=== PATIENT | female | born 1960 ===

== ENCOUNTER 2021-09-05 10:27 | Outpatient (REF) | payer OTHER, SELFPAY ==
[2021-09-05 10:30] LABS: MANUAL DIFF FLAG NO
[2021-09-05 10:34] LABS: Basophils Percent Auto 0.3 % (0-2); Eosinophils Absolute Auto 0.1 X10*3/uL (0.0-0.4); Hematocrit 39.7 % (37-47); Hemoglobin 13.1 g/dl (12.0-16.0); Imm Gran Abs Auto 0.01 X10*3/uL (0.00-0.03); Imm Gran Pct Auto 0.3 % (0.0-0.4); Lymphocytes Absolute Auto 1.7 X10*3/uL (1.2-4.9); Lymphocytes Percent Auto 42.1 % (20-40); Mean Corpuscular Hemoglobin 30.3 pg (27.0-33.0); Mean Corpuscular Volume 91.9 fL (80-98); Mean Platelet Volume 9.9 fL (9.4-12.3); Monocytes Absolute Auto 0.5 X10*3/uL (0.1-1.2); Monocytes Percent Auto 11.6 % (2-11); Neutrophils Absolute Auto 1.7 X10*3/uL (2.0-8.3); Neutrophils Percent Auto 43.7 % (45-73); Platelet Count 181 X10*3/uL (160-400); Red Blood Count 4.32 X10*6/uL (4.20-5.50); Red Cell Distribution Width 11.9 % (11.0-16.0)
[2021-09-05 10:47] LABS: Alanine Aminotransferase 27 U/L (0-31); Albumin Level 4.5 g/dL (3.5-5.0); Alkaline Phosphatase 47 U/L (39-117); Anion Gap 10 (12-20); Aspartate Amino Transferase 30 U/L (5-31); Bilirubin Total 1.1 mg/dL (0.0-1.0); Blood Urea Nitrogen 19 mg/dL (9-16); Calcium 9.9 mg/dL (8.4-10.2); Carbon Dioxide 31 mmol/L (22-29); Chloride 104 mmol/L (96-108); Cholesterol 196 mg/dL; Estimated Glomerular Filt Rate 57; Glucose Fasting 94 mg/dL (60-99); HDL Cholesterol 72 mg/dL; LDL Cholesterol Calculated 110 mg/dl; Potassium 4.5 mmol/L (3.3-5.1); Sodium 140 mmol/L (135-145); Total Protein 6.9 g/dL (6.5-8.0); Triglycerides 73 mg/dL
[2021-09-05 11:13] LABS: Appearance Urine CLEAR; Color Urine YELLOW; Glucose Urine UA NEG (NEG); Leukocyte Esterase Urine NEG (NEG); Nitrite Urine NEG (NEG); Urine Blood NEG (NEG); Urine Ketones NEG (NEG); Urine Protein NEG (NEG-TRACE)
== END 2021-09-05 10:28 | disposition home or self-care (01) ==
LOC: HO.LNP 10:27
PROVIDERS: Visit Provider Internal Medicine
DX: Z00.00 Encounter for general adult medical examination without abnormal findings (principal)
CPT/HCPCS: 80053; 80061; 81003; 85025

== ENCOUNTER 2022-03-15 11:01 | Outpatient (REF) | payer OTHER, SELFPAY ==
[2022-03-15 11:09] LABS: MANUAL DIFF FLAG NO
[2022-03-15 11:31] LABS: Basophils Percent Auto 0.5 % (0-2); Eosinophils Absolute Auto 0.1 X10*3/uL (0.0-0.4); Eosinophils Percent Auto 1.4 % (0-4); Hematocrit 38.9 % (37.0-47.0); Hemoglobin 12.6 g/dl (12.0-16.0); Imm Gran Abs Auto 0.01 X10*3/uL (0.00-0.03); Imm Gran Pct Auto 0.3 % (0.0-0.4); Lymphocytes Absolute Auto 1.3 X10*3/uL (1.2-4.9); Lymphocytes Percent Auto 35.9 % (20-40); Mean Corpuscular HGB Conc 32.4 g/dl (31.0-35.0); Mean Corpuscular Hemoglobin 30.7 pg (27.0-33.0); Mean Corpuscular Volume 94.6 fL (80.0-98.0); Monocytes Absolute Auto 0.4 X10*3/uL (0.1-1.2); Monocytes Percent Auto 10.3 % (2-11); Neutrophils Absolute Auto 1.9 x10*3/uL (2.0-8.3); Neutrophils Percent Auto 51.6 % (45-73); Platelet Count 188 X10*3/uL (160-400); Red Blood Count 4.11 X10*6/uL (4.20-5.50); Red Cell Distribution Width 11.6 % (11.0-16.0); White Blood Count 3.7 X10*3/uL (4.8-10.8)
== END 2022-03-15 11:02 | disposition home or self-care (01) ==
LOC: HO.LNP 11:01
PROVIDERS: PCP Internal Medicine; Visit Provider Internal Medicine
DX: D72.820 Lymphocytosis (symptomatic) (principal)
CPT/HCPCS: 85025

== ENCOUNTER 2022-07-12 10:35 | Outpatient (REF) | payer OTHER, SELFPAY ==
[2022-07-12 10:40] LABS: MANUAL DIFF FLAG NO
[2022-07-12 10:50] LABS: Basophils Percent Auto 0.5 % (0-2); Eosinophils Absolute Auto 0.1 X10*3/uL (0.0-0.4); Eosinophils Percent Auto 2.3 % (0-4); Hematocrit 38.1 % (37.0-47.0); Hemoglobin 12.8 g/dl (12.0-16.0); Imm Gran Abs Auto 0.01 X10*3/uL (0.00-0.03); Imm Gran Pct Auto 0.3 % (0.0-0.4); Lymphocytes Absolute Auto 1.5 X10*3/uL (1.2-4.9); Lymphocytes Percent Auto 38.1 % (20-40); Mean Corpuscular HGB Conc 33.6 g/dl (31.0-35.0); Mean Corpuscular Hemoglobin 30.3 pg (27.0-33.0); Mean Corpuscular Volume 90.1 fL (80.0-98.0); Mean Platelet Volume 9.9 fL (9.4-12.3); Monocytes Absolute Auto 0.5 X10*3/uL (0.1-1.2); Monocytes Percent Auto 11.6 % (2-11); Neutrophils Absolute Auto 1.9 x10*3/uL (2.0-8.3); Neutrophils Percent Auto 47.2 % (45-73); Platelet Count 175 X10*3/uL (160-400); Red Blood Count 4.23 X10*6/uL (4.20-5.50); Red Cell Distribution Width 11.6 % (11.0-16.0)
[2022-07-12 11:00] LABS: Alanine Aminotransferase 20 U/L (0-31); Albumin Level 4.4 g/dL (3.5-5.0); Alkaline Phosphatase 39 U/L (39-117); Anion Gap 12 (12-20); Aspartate Amino Transferase 27 U/L (5-31); Bilirubin Total 0.9 mg/dL (0.0-1.0); Blood Urea Nitrogen 15 mg/dL (9-16); Calcium 9.3 mg/dL (8.4-10.2); Carbon Dioxide 28 mmol/L (22-29); Chloride 105 mmol/L (96-108); Cholesterol 205 mg/dL; Estimated Glomerular Filt Rate 53; Glucose Fasting 84 mg/dL (60-99); HDL Cholesterol 75 mg/dL; LDL Cholesterol Calculated 118 mg/dl; Potassium 4.4 mmol/L (3.3-5.1); Sodium 141 mmol/L (135-145); Total Protein 6.5 g/dL (6.5-8.0); Triglycerides 64 mg/dL
[2022-07-12 11:46] LABS: Appearance Urine Clear; Color Urine Yellow; Glucose Urine UA Negative (Negative); Leukocyte Esterase Urine Negative (Negative); Nitrite Urine Negative (Negative); PH 5.5 (5.0-9.0); Specific Gravity - Urine <= 1.005 (1.005-1.025); Urine Blood Negative (Negative); Urine Ketones Negative (Negative); Urine Protein Negative (Neg-Trace)
[2022-07-12 11:52] LABS: Bacteria Urine None Seen (None Seen); Hyaline Casts Urine 0-2 /LPF (0-2); RBC Urine 0-2 /HPF (0-2); Squamous Epithelial Cell Urine 0-2 /HPF (0-2); WBC Urine 0-5 /HPF (0-5)
== END 2022-07-12 10:36 | disposition home or self-care (01) ==
LOC: HO.LNP 10:35
PROVIDERS: Visit Provider Internal Medicine
DX: Z00.00 Encounter for general adult medical examination without abnormal findings (principal); D72.820 Lymphocytosis (symptomatic)
CPT/HCPCS: 80053; 80061; 81001; 85025

== ENCOUNTER 2023-07-22 10:49 | Outpatient (REF) | payer OTHER, SELFPAY ==
[2023-07-22 10:52] LABS: MANUAL DIFF FLAG NO
[2023-07-22 11:14] LABS: Basophils Percent Auto 0.5 % (0-2); Eosinophils Absolute Auto 0.1 X10*3/uL (0.0-0.4); Eosinophils Percent Auto 3.3 % (0-4); Hematocrit 37.9 % (37.0-47.0); Hemoglobin 12.6 g/dl (12.0-16.0); Imm Gran Abs Auto 0.01 X10*3/uL (0.00-0.03); Imm Gran Pct Auto 0.3 % (0.0-0.4); Lymphocytes Absolute Auto 1.3 X10*3/uL (1.2-4.9); Lymphocytes Percent Auto 35.8 % (20-40); Mean Corpuscular HGB Conc 33.2 g/dl (31.0-35.0); Mean Corpuscular Hemoglobin 30.7 pg (27.0-33.0); Mean Corpuscular Volume 92.2 fL (80.0-98.0); Mean Platelet Volume 10.1 fL (9.4-12.3); Monocytes Absolute Auto 0.4 X10*3/uL (0.1-1.2); Monocytes Percent Auto 9.6 % (2-11); Neutrophils Absolute Auto 1.9 x10*3/uL (2.0-8.3); Neutrophils Percent Auto 50.5 % (45-73); Platelet Count 183 X10*3/uL (160-400); Red Blood Count 4.11 X10*6/uL (4.20-5.50); Red Cell Distribution Width 11.6 % (11.0-16.0); White Blood Count 3.7 X10*3/uL (4.8-10.8)
[2023-07-22 11:27] LABS: Appearance Urine Clear; Color Urine Dark Yellow; Glucose Urine UA Negative (Negative); Leukocyte Esterase Urine Trace (Negative); Nitrite Urine Negative (Negative); PH 5.5 (5.0-9.0); Specific Gravity - Urine >= 1.030 (1.005-1.025); UMIC TRIGGER UACC YES; Urine Blood Negative (Negative); Urine Ketones Trace mg/dL (Negative); Urine Protein Negative (Neg-Trace)
[2023-07-22 11:31] LABS: Alanine Aminotransferase 19 U/L (0-31); Albumin Level 4.2 g/dL (3.5-5.0); Alkaline Phosphatase 47 U/L (39-117); Anion Gap 10 (12-20); Aspartate Amino Transferase 24 U/L (5-31); Bilirubin Total 0.9 mg/dL (0.0-1.0); Blood Urea Nitrogen 20 mg/dL (9-16); Calcium 9.4 mg/dL (8.4-10.2); Carbon Dioxide 29 mmol/L (22-29); Chloride 105 mmol/L (96-108); Cholesterol 195 mg/dL (<200); Estimated Glomerular Filt Rate > 60; Glucose Fasting 87 mg/dL (60-99); HDL Cholesterol 71 mg/dL (>40); LDL Cholesterol Calculated 109 mg/dL (<100); Potassium 3.8 mmol/L (3.3-5.1); Sodium 140 mmol/L (135-145); Total Protein 6.6 g/dL (6.5-8.0); Triglycerides 79 mg/dL (<150)
[2023-07-22 11:34] LABS: Bacteria Urine 1+ (None Seen); Hyaline Casts Urine 0-2 /LPF (0-2); WBC Urine 0-5 /HPF (0-5)
== END 2023-07-22 10:50 | disposition home or self-care (01) ==
LOC: HO.LNP 10:49
PROVIDERS: PCP Internal Medicine; Visit Provider Internal Medicine
DX: Z00.00 Encounter for general adult medical examination without abnormal findings (principal); D72.820 Lymphocytosis (symptomatic)
CPT/HCPCS: 80053; 80061; 81001; 85025

== ENCOUNTER 2023-08-26 11:26 | Outpatient (REF) | payer OTHER, SELFPAY ==
[2023-08-26 11:44] LABS: Appearance Urine Clear; Color Urine Yellow; Glucose Urine UA Negative (Negative); Leukocyte Esterase Urine Negative (Negative); Nitrite Urine Negative (Negative); PH 5.5 (5.0-9.0); Specific Gravity - Urine 1.025 (1.005-1.025); Urine Blood Negative (Negative); Urine Ketones Trace mg/dL (Negative); Urine Protein Negative (Neg-Trace)
[2023-08-26 12:00] LABS: Bacteria Urine Trace (None Seen); Calcium Oxalate Crystals Urine Present; Hyaline Casts Urine 0-2 /LPF (0-2); RBC Urine 0-2 /HPF (0-2); WBC Urine 0-5 /HPF (0-5)
== END 2023-08-26 11:27 | disposition home or self-care (01) ==
LOC: HO.LNP 11:26
PROVIDERS: Visit Provider Internal Medicine
DX: R31.9 Hematuria, unspecified (principal)
CPT/HCPCS: 81001

== ENCOUNTER 2024-07-23 11:41 | Outpatient (REF) | payer OTHER, SELFPAY ==
[2024-07-23 11:45] LABS: MANUAL DIFF FLAG NO
[2024-07-23 12:11] LABS: Eosinophils Absolute Auto 0.1 X10*3/uL (0.0-0.4); Eosinophils Percent Auto 1.8 % (0-4); Hematocrit 39.8 % (37.0-47.0); Hemoglobin 13.1 g/dl (12.0-16.0); Imm Gran Abs Auto 0.01 X10*3/uL (0.00-0.03); Imm Gran Pct Auto 0.3 % (0.0-0.4); Lymphocytes Absolute Auto 1.4 X10*3/uL (1.2-4.9); Lymphocytes Percent Auto 36.5 % (20-40); Mean Corpuscular HGB Conc 32.9 g/dl (31.0-35.0); Mean Corpuscular Hemoglobin 30.5 pg (27.0-33.0); Mean Corpuscular Volume 92.6 fL (80.0-98.0); Mean Platelet Volume 9.8 fL (9.4-12.3); Monocytes Absolute Auto 0.4 X10*3/uL (0.1-1.2); Monocytes Percent Auto 10.4 % (2-11); Neutrophils Absolute Auto 1.9 x10*3/uL (2.0-8.3); Platelet Count 185 X10*3/uL (160-400); Red Cell Distribution Width 11.8 % (11.0-16.0); White Blood Count 3.9 X10*3/uL (4.8-10.8)
[2024-07-23 12:12] LABS: Appearance Urine Clear; Color Urine Yellow; Glucose Urine UA Negative (Negative); Leukocyte Esterase Urine Negative (Negative); Nitrite Urine Negative (Negative); PH 5.5 (5.0-9.0); Specific Gravity - Urine <= 1.005 (1.005-1.025); Urine Blood Negative (Negative); Urine Ketones Negative (Negative); Urine Protein Negative (Neg-Trace)
[2024-07-23 12:18] LABS: Bacteria Urine None Seen (None Seen); Hyaline Casts Urine 0-2 /LPF (0-2); RBC Urine 0-2 /HPF (0-2); Squamous Epithelial Cell Urine 0-2 /HPF (0-2); WBC Urine 0-5 /HPF (0-5)
[2024-07-23 12:30] LABS: Alanine Aminotransferase 21 U/L (0-31); Albumin Level 4.3 g/dL (3.5-5.0); Alkaline Phosphatase 40 U/L (39-117); Anion Gap 12 (12-20); Aspartate Amino Transferase 26 U/L (5-31); Blood Urea Nitrogen 17 mg/dL (9-16); Calcium 9.7 mg/dL (8.4-10.2); Carbon Dioxide 28 mmol/L (22-29); Chloride 106 mmol/L (96-108); Cholesterol 196 mg/dL (<200); Estimated Glomerular Filt Rate > 60; Glucose Fasting 90 mg/dL (60-99); HDL Cholesterol 72 mg/dL (>40); LDL Cholesterol Calculated 108 mg/dL (<100); Potassium 4.1 mmol/L (3.3-5.1); Sodium 142 mmol/L (135-145); Total Protein 6.8 g/dL (6.5-8.0); Triglycerides 83 mg/dL (<150)
== END 2024-07-23 11:42 | disposition home or self-care (01) ==
LOC: HO.LNP 11:41
PROVIDERS: Visit Provider Internal Medicine
DX: Z00.00 Encounter for general adult medical examination without abnormal findings (principal); D72.820 Lymphocytosis (symptomatic)
CPT/HCPCS: 80053; 80061; 81001; 85025

== ENCOUNTER 2025-07-27 10:57 | Outpatient (REF) | payer OTHER, SELFPAY ==
--- OUTSIDE RECORDS SUMMARY | 2024-07-23 03:00 | XMS_ITS ---
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 Name Role Phone Berlin Ospina Primary Care Provider [phone] Results Component Value Reference Range Notes Complete Blood Count Auto Di ff Reviewed date:07/24/2024 08:41:55 AM Interpretation: Performing Lab:[facility], [address] [place] [id number] Notes/Report: White Blood Count 3.9 4.8-10.8 X10*3/uL Red Blood Count 4.30 4.20-5.50 X10*6/uL Hemoglobin 13.1 12.0-16.0 g/dl Hematocrit 39.8 37.0-47.0 % Mean Corpuscular Volume 92.6 80.0-98.0 fL Mean Corpuscular Hemoglobin 30.5 27.0-33.0 pg Mean Corpuscular HGB Conc 32.9 31.0-35.0 g/dl Red Cell Distribution Width 11.8 11.0-16.0 % Platelet Count 185 160-400 X10*3/uL Mean Platelet Volume 9.8 9.4-12.3 fL Neutrophils Percent Auto 50.0 45-73 % Imm Gran Pct Auto 0.3 0.0-0.4 % Lymphocytes Percent Auto 36.5 20-40 % Monocytes Percent Auto 10.4 2-11 % Eosinophils Percent Auto 1.8 0-4 % Basophils Percent Auto 1.0 0-2 % NRBC Pct Auto 0.0 0.0-0.2 /100WBC Neutrophils Absolute Auto 1.9 2.0-8.3 x10*3/u L Imm Gran Abs Auto 0.01 0.00-0.03 X10*3/uL Lymphocytes Absolute Auto 1.4 1.2-4.9 X10*3/u L Monocytes Absolute Auto 0.4 0.1-1.2 X10*3/uL Eosinophils Absolute Auto 0.1 0.0-0.4 X10*3/u L Basophils Absolute Auto 0.0 0.0-0.2 X10*3/uL NRBC Abs Auto 0.000 0.0-0.012 X10*3/uL Comprehensive [place]. Panel Fa st Reviewed date:07/24/2024 08:52:32 AM Interpretation: Performing Lab:[address] [id number] Notes/Report: Sodium 142 135-145 mmol/L Potassium 4.1 3.3-5.1 mmol/L Chloride 106 96-108 mmol/L Carbon Dioxide 28 22-29 mmol/L Anion Gap 12 12-20 Blood Urea Nitrogen 17 9-16 mg/dL Creatinine 0.91 0.5-1.4 mg/dL Estimated Glomerular Filt Rate > 60 NOTE: For -German individuals, multiply the result by 1.210. Chronic Kidney Disease: Estimated GFR < 60 mL/min/1.73m2 Severe Kidney Disease: Estimated GFR < 15 mL/min/1.73m2 Glucose Fasting 90 60-99 mg/dL Calcium 9.7 8.4-10.2 mg/dL Bilirubin Total 1.0 0.0-1.0 mg/dL Aspartate Amino Transferase 26 5-31 U/L Alanine Aminotransferase 21 0-31 U/L Total Protein 6.8 6.5-8.0 g/dL Albumin Level 4.3 3.5-5.0 g/dL Alkaline Phosphatase 40 39-117 U/L Lipid Panel Reviewed date:07/24/2024 08:40:55 AM Interpretation: Performing Lab:[address] [id number] Notes/Report: Triglycerides 83 <150 mg/dL Desirable Triglyceride: less than 150 mg/dL Borderline High Triglyceride 150-199 mg/dL High Triglyceride: 200-499 mg/dL Very High Triglyceride: greater than or equal to 5OO mg/dL Cholesterol 196 <200 mg/dL Desirable Cholesterol: less than 200 mg/dL Borderline High Cholesterol: 200-239 mg/dL High Cholesterol: greater than 239 mg/dL LDL Cholesterol Calculated 108 <100 mg/dL Desirable LDL: less than 100 mg/dL Near Optimal/Above Optimal LDL: 110-129 mg/dL Borderline High LDL: 130-159 mg/dL High LDL: 160-189 mg/dL Very High LDL: greater than or equal to 190 mg/dL HDL Cholesterol 72 >40 mg/dL Desirable HDL: greater than 40 mg/dL Note: This HDL assay may give artificially low results in patients with liver disease. UA ClnCatch+Micro w/rflx Cul t Reviewed date:07/24/2024 08:52:16 AM Interpretation: Performing Lab:[facility], [address] [place] [address] Notes/Report: Urine, Clean Catch Color Urine Yellow Appearance Urine Clear PH 5.5 5.0-9.0 Glucose Urine UA Negative Negative mg/dL Urine Blood Negative Negative Specific [place] - Urine <= 1.005 1.005-1.025 Urine Protein Negative Neg-Trace mg/dL Urine Ketones Negative Negative mg/dL Nitrite Urine Negative Negative Leukocyte Esterase Urine Negative Negative RBC Urine 0-2 0-2 /HPF WBC Urine 0-5 0-5 /HPF Squamous Epithelial Cell Urine 0-2 0-2 /HPF Bacteria Urine None Seen None Seen Hyaline Casts Urine 0-2 0-2 /LPF REASON FOR VISIT annual labs Immunizations Vaccine Route Administration Date Status Comme nts Fluarix Quadrivalent - 150 IM Intramuscular 07/23/2024 Adm inistered Encounters Encounter Location Date Provider Diagnosis Berlin Ospina MD [address] [place] [address] Drive [address] [place], [place] [phone] 07/23/2024 Berlin Ospina Annual physical exam Z00.00 ; Encounter for immunization Z23 and Lymphocytosis D72.820 Assessments Encounter Date Diagnosis (ICD Code) Assessment Notes Treatment Notes Treatment Clinical Notes Section Notes 07/23/2024 Annual physical exam (ICD-10 - Z00.00) 07/23/2024 Encounter for immunization (ICD-10 - Z23) 07/23/2024 Lymphocytosis (ICD-10 - D72.820) Plan Of Treatment Next Appt Details Provider Name:Berlin Peterson ier, 08/02/2025 08:30:00 AM, [address] [facility], [address], [place], [place], [phone], Progress Notes * Kalyn CRUZ CDOB: 0 (65 yo F)Acc No.[id number]:07/23/2024 Progress Note Patient: Kalyn ADRIAN Provider: Tushar Opsina MD :1960 A ge:64 Y S ex:Female Date:07/23/2024 Address:[address] [place] [address], [id number] Subjective: * Chief Complaints: * 1 . Annual labs. * Medical History: Objective: * Vitals: Assessment: * Assessment: 1. E ncounter for immunization - Z23 (Primary) 2 . A nnual physical exam - Z00.00 3 . L ymphocytosis - D72.820 Plan: * Treatment: 2. L ymphocytosis L AB: Complete Blood Count Auto Diff (Collection Date & Time - 07/23/2024 07:00 AM) L AB: Comprehensive [place]. Panel Fast (Collection Date & Time - 07/23/2024 07:00 AM) L AB: Lipid Panel (Collection Date & Time - 07/23/2024 07:00 AM) L AB: UA ClnCatch+Micro w/rflx Cult (Collection Date & Time - 07/23/2024 07:00 AM) * Immunizations: Fluarix Quadrivalent - 150 : 0.5 mL (Dose No:1) (Route: Intramuscular) given by Radha Michel , Office Staff on Left Deltoid * Procedure Codes: 9 0686 FLU VAC NO PRSV 4 JUANA 3 YRS+, [address] IMMUNIZATION ADMIN, [address] VENIPUNCT, ROUTINE* * * The named appointment provid er may or may not be the originator of this progress note, and it is not deemed complete until electronically signed by the appointment provider. Sign off status: Pending * Provider: Tushar Ospina MD Date: 0 07/23/2024 Generated for Dmitri manriquez/Maggy/Gio on: 0 07/27/2025 02:49 PM EDT
--- OUTSIDE RECORDS SUMMARY | 2024-07-30 04:00 | XMS_ITS ---
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 Name Role Phone Berlin Ospina Primary Care Provider Allergies Allergen (clinical drug ingredient) Drug/Non Drug Allergy documented on EMR Reaction Allergy Type Onset Date Status Compazine Throat closes Drug Allergy Act chacha REASON FOR VISIT annual visit Medications Medication SIG (Take, Route, Frequency, Duration) Notes Start Date End Date Status Alendronate Sodium 70 MG 1 tablet 30 min utes before the first food, beverage or medicine of the day with plain water Orally Active Social History Tobacco Use: Social History Observation Description Date Details (start date - stop date) Never Smoker NA - NA Tobacco Use/Smoking Question Answer Notes Patient is a nonsmoker Additional Findings: Tobacco Non-User Cu rrent non-smoker, currently using no form of tobacco Alcohol Screen Question Answer Notes Did you have a drink containing alcohol in the p ast year? No Points 0 Interpretation Negative Vital Signs Blood pressure systolic 102 mm Hg 07/30/20 24 Blood pressure diastolic 66 mm Hg 024 Height 60 in 07/30/2024 Weight 91 lbs 07/30/2024 BMI 17.77 kg/m2 07/30/2024 Encounters Encounter Location Date Provider Diagnosis Berlin Ospina MD [address] [place], [place] [phone] 07/30/2024 Berlin Ospina Annual physical exam Z00.00 ; Hematuria, unspecified type R31.9 and Lymphocytosis D72.820 Assessments Encounter Date Diagnosis (ICD Code) Assessment Notes Treatment Notes Treatment Clinical Notes Section Notes 07/30/2024 Annual physical exam (ICD-10 - Z00.00) excellent, labs reviewed and discussed with patient 07/30/2024 Hematuria, unspecified type (ICD-10 - R31.9) doing well, will continue to monitor 07/30/2024 Lymphocytosis (ICD-10 - D72.820) has resolved, will contiue to monitor Plan Of Treatment Treatment Notes Assessment Notes Annual physical exam excellent, labs rev iewed and discussed with patient Hematuria, unspecified type doing well, will continue to monitor Lymphocytosis has resolved, will c ontiue to monitor Next Appt Details Follow Up: 1 Year, Reason: Provider Name:Berlin Peterson ier, 08/02/2025 08:30:00 AM, [address] [place] [address], [address], [place], [place], [phone], Progress Notes * Kalyn CRUZ CDOB: 0 (64 yo F)Acc No.[id number]:07/30/2024 Progress Notes Patient: Kalyn Duarte Provider: Tushar Ospina MD :1960 A ge:64 Y S ex:Female Date:07/30/2024 Address:[address] [place] [address], [facility] Subjective: * Chief Complaints: * A nnual visit * HPI: D epression Screening: PHQ-9 L ittle interest or pleasure in doing things N ot at all, F eeling down, depressed, or hopeless N ot at all, T rouble falling or staying asleep, or sleeping too much N ot at all, F eeling tired or having little energy N ot at all, P oor appetite or overeating N ot at all, F eeling bad about yourself or that you are a failure, or have let yourself or your family down N ot at all, T rouble concentrating on things, such as reading the newspaper or watching television N ot at all, M oving or speaking so slowly that other people could have noticed; or the opposite, being so fidgety or restless that you have been moving around a lot more than usual N ot at all, T houghts that you would be better off or of hurting yourself in some way N ot at all, T otal Score 0 . I nterpretation and Intervention D epression Screening Findings N egative, F ollow-Up for Depression : review of PHQ-9 found negative result, no follow-up needed. C ommunication Needs: Communication Needs D oes the patient have a hearing impairment N o, D oes the patient have a vision impairment? N o, D oes the patient have a cognition impairment? N o. S ULISES Questions: SDOH Questions I n the past year have you been worried about losing housing? N o, I n the past year have you or any family members you live with been unable to get any of the following when it was really needed? Check all that apply: N one. S ymptom(s): patient is a 64 yo female here for annual visit with review of recent labs and follow up of chronic issues. * ROS: G eneral/Constitutional: Patient denies f atigue , headache. C hange in appetite?denies. C hills d enies. F ever d enies. O phthalmologic: Blurred vision d enies. D ischarge d enies. P ain d enies. E NT: Patient denies d ecreased sense of smell , any loss of taste , sore throat. D ecreased hearing d enies. S ore throat d enies. S wollen glands d enies. E ndocrine: Cold intolerance d enies. E xcessive thirst d enies. H eat intolerance d enies. W eight loss d enies. R espiratory: Cough d enies. S hortness of breath at rest d enies. S hortness of breath with exertion d enies. W heezing d enies. C ardiovascular: Chest pain at rest d enies. C hest pain with exertion?denies. I rregular heartbeat d enies. S hortness of breath d enies. ? G astrointestinal: Abdominal pain d enies. C hange in bowel habits d enies. D iarrhea d enies. N ausea d enies. R ectal bleeding d enies. V omiting d enies . G enitourinary: Blood in urine d enies. D ifficulty urinating d enies. F requent urination d enies. U rinary incontinence D enies. M usculoskeletal: Patient denies m uscle aches. P ainful joints d enies. W eakness d enies. P eripheral Vascular: Patient denies r ed and blue toes. S kin: Dry skin d enies. I tching d enies. D enies?Mole(s), changes in moles, new moles or any lesions of concern. D enies P hotosensitivity. R anoop d enies. N eurologic: Dizziness d enies. F ainting d enies. H eadache?denies. * Medical History: * Surgical History: * Hospitalization/Major Diagno stic Procedure: * Family History: F ather: 92 yrs, diagnosed with Diabetes, Cancer, Hypertension. M other: alive 91 yrs, diagnosed with Hypertension. 3 brother(s) . 3 son(s) . . Denies mental health/substance abuse family history, Denies mental health/substance abuse family history, Denies mental health/substance abuse family history, No pertinent family medical history. * Social History: T obacco Use: T obacco Use/Smoking P atient is a n onsmoker, A dditional Findings: Tobacco Non-User C urrent non-smoker, currently using no form of tobacco. D rugs/Alcohol: A lcohol Screen D id you have a drink containing alcohol in the past year? N o, P oints 0 , I nterpretation N egative. M iscellaneous: C affeine: yes, frequency: 2 cups per day. Children: yes. Community involvements: yes, rides her bike. Exercise: yes, 4 days per week weights and Eliptical. Housing: owning. Living with: spouse and kids. Occupation: works full-time. Pets: dog x1. no Travel outside of the [place]. * Medications: T akingAlendronate Sodium 70 MG Tablet 1 tablet 30 minutes before the first food, beverage or medicine of the day with plain water Orally Medication List reviewed and reconciled with the patientTaking Alendronate Sodium 70 MG Tablet 1 tablet 30 minutes before the first food, beverage or medicine of the day with plain water Orally Medication List reviewed and reconciled with the patient * Allergies: C ompazine: Throat closesyes[Allergies Verified] Objective: * Vitals: H t: 60, Wt:91, BMI:17.77, BP:102/66. * P ast Orders: L ab:Complete Blood Count Auto Diff (Order Date - 07/23/2024) (Collection Date - 07/23/2024) Value Reference Range White Blood Count 3.9 L 4.8-10.8 - X10*3/uL Red Blood Count 4.30 4.20-5.50 - X10*6/uL Hemoglobin 13.1 12.0-16.0 - g/dl Hematocrit 39.8 37.0-47.0 - % Mean Corpuscular Volume 92.6 80.0-98.0 - fL Mean Corpuscular Hemoglobin 30.5 27.0-33.0 - pg Mean Corpuscular HGB Conc 32.9 31.0-35.0 - g/ dl Red Cell Distribution Width 11.8 11.0-16.0 - % Platelet Count 185 160-400 - X10*3/uL Mean Platelet Volume 9.8 9.4-12.3 - fL Neutrophils Percent Auto 50.0 45-73 - % Imm Gran Pct Auto 0.3 0.0-0.4 - % Lymphocytes Percent Auto 36.5 20-40 - % Monocytes Percent Auto 10.4 2-11 - % Eosinophils Percent Auto 1.8 0-4 - % Basophils Percent Auto 1.0 0-2 - % NRBC Pct Auto 0.0 0.0-0.2 - /100WBC Neutrophils Absolute Auto 1.9 L 2.0-8.3 - x10* 3/uL Imm Gran Abs Auto 0.01 0.00-0.03 - X10*3/uL Lymphocytes Absolute Auto 1.4 1.2-4.9 - X10* 3/uL Monocytes Absolute Auto 0.4 0.1-1.2 - X10*3/ uL Eosinophils Absolute Auto 0.1 0.0-0.4 - X10* 3/uL Basophils Absolute Auto 0.0 0.0-0.2 - X10*3/ uL NRBC Abs Auto 0.000 0.0-0.012 - X10*3/uL L ab:Comprehensive [place]. Panel Fast (Order Date - 07/23/2024) (Collection Date - 07/23/2024) Value Reference Range Sodium 142 135-145 - mmol/L Bilirubin Total 1.0 0.0-1.0 - mg/dL Aspartate Amino Transferase 26 5-31 - U/L Alanine Aminotransferase 21 0-31 - U/L Total Protein 6.8 6.5-8.0 - g/dL Albumin Level 4.3 3.5-5.0 - g/dL Alkaline Phosphatase 40 39-117 - U/L Potassium 4.1 3.3-5.1 - mmol/L Chloride 106 96-108 - mmol/L Carbon Dioxide 28 22-29 - mmol/L Anion Gap 12 12-20 - Blood Urea Nitrogen 17 H 9-16 - mg/dL Creatinine 0.91 0.5-1.4 - mg/dL Estimated Glomerular Filt Rate > 60 - Glucose Fasting 90 60-99 - mg/dL Calcium 9.7 8.4-10.2 - mg/dL L ab:Lipid Panel (Order Date - 07/23/2024) (Collection Date - 07/23/2024) Value Reference Range Triglycerides 83 <150 - mg/dL Cholesterol 196 <200 - mg/dL LDL Cholesterol Calculated 108 H <100 - mg/dL HDL Cholesterol 72 >40 - mg/dL L ab:UA ClnCatch+Micro w/rflx Cult (Order Date - 07/23/2024) (Collection Date - 07/23/2024) Value Reference Range Color Urine Yellow - Appearance Urine Clear - PH 5.5 5.0-9.0 - Glucose Urine UA Negative Negative - mg/dL Urine Blood Negative Negative - Specific [place] - Urine <= 1.005 1.005-1.025 - Urine Protein Negative Neg-Trace - mg/dL Urine Ketones Negative Negative - mg/dL Nitrite Urine Negative Negative - Leukocyte Esterase Urine Negative Negative - RBC Urine 0-2 0-2 - /HPF WBC Urine 0-5 0-5 - /HPF Squamous Epithelial Cell Urine 0-2 0-2 - /HP F Bacteria Urine None Seen None Seen - Hyaline Casts Urine 0-2 0-2 - /LPF * Examination: G eneral Examination: GENERAL APPEARANCE: w ell developed, well nourished, in no acute distress. HEAD: n ormocephalic, atraumatic. EYES: p upils equal, round, reactive to light and accommodation, sclera non-icteric. EARS: n ormal. ORAL CAVITY: m ucosa moist. THROAT: c lear. NECK/THYROID: n landry supple, full range of motion, no cervical lymphadenopathy, no bruits. SKIN: w arm and dry, no suspicious lesions. HEART: r egular rate and rhythm, S1, S2 normal, no murmurs.? LUNGS: c lear to auscultation bilaterally. BREASTS: d one by office services clerk. ABDOMEN: s oft, nontender, nondistended, bowel sounds present, normal, no organomegaly , no masses palpable. RECTAL EXAM: d one by office services clerk. FEMALE GENITOURINARY: d one by office services clerk. EXTREMITIES: n o clubbing, cyanosis, or edema. NEUROLOGIC: n onfocal, motor strength normal upper and lower extremities, sensory exam intact. Assessment: * Assessment: 1. A nnual physical exam - Z00.00 (Primary) 2 . H ematuria, unspecified type - R31.9?3. L ymphocytosis - D72.820 Plan: * Treatment: 2. H ematuria, unspecified type Notes: doing well, will continue to monitor 3. L ymphocytosis Notes: has resolved, will contiue to monitor * Procedure Codes: * Preventive Medicine: Counseling: C are goal follow-up plan: C ounseling for abnormal BMI provided?Yes, B elow Normal BMI Follow-up L ifestyle education regarding diet. * Follow Up: 1 Year * * Sign off status: Completed true * Provider: Tushar Ospina MD Date: 07/30/2024 Generated for Dmitri manriquez/Maggy/Sharonitting on: 07/27/2025 02:50 PM EDT History and Physical Notes * HPI (History of Present Illness) Category Sub-Category Detail Notes Category Not es Symptom(s) patient is a 64 yo female here for annual visit with review of recent labs and follow up of chronic issues. Depression Screening PHQ-9 Little inte rest or pleasure in doing things: Not at all Feeling down, depressed, or hopeless: No t at all Trouble falling or staying asleep, or sl eeping too much: Not at all Feeling tired or having little energy: N ot at all Poor appetite or overeating: Not at all Feeling bad about yourself o r that you are a failure, or have let yourself or your family down: Not at all Trouble concentrating on thi ngs, such as reading the newspaper or watching television: Not at all Moving or speaking so slowly that other people could have noticed; or the opposite, being so fidgety or restless that you have been moving around a lot more than usual: Not at all Thoughts that you would be b adrien off or of hurting yourself in some way: Not at all Total Score: 0 Interpretation and Intervention Depression Della lutz Findings: Negative Follow-Up for Depression: : review of PH Q-9 found negative result, no follow-up needed SDOH Questions SDOH Questions In the past year have you been worried about losing housing?: No In the past year have you or any family members you live with been unable to get any of the following when it was really needed? Check all that apply:: None Communication Needs Communication Needs Does the patient have a hearing impairment: No Does the patient have a vision impairmen t?: No Does the patient have a cognition impair ment?: No Examination Category Sub-Category Detail Notes Category Not es General Examination GENERAL APPEARANCE: well dev eloped, well nourished, in no acute distress HEAD: normocephalic, atrau matic EYES: pupils equal, round, reactive to light and accommodation, sclera non-icteric EARS: normal THROAT: clear NECK/THYROID: neck supple, full ra nge of motion, no cervical lymphadenopathy, no bruits HEART: regular rate and rhy thm, S1, S2 normal, no murmurs LUNGS: clear to auscultatio n bilaterally ABDOMEN: soft, nontender, non distended, bowel sounds present, normal, no organomegaly , no masses palpable NEUROLOGIC: nonfocal, motor stre ngth normal upper and lower extremities, sensory exam intact SKIN: warm and dry, no nathalie picious lesions EXTREMITIES: no clubbing, cyanosi s, or edema BREASTS: done by office services clerk RECTAL EXAM: done by office services clerk FEMALE GENITOURINARY: done by office services clerk ORAL CAVITY: mucosa moist
--- OUTSIDE RECORDS SUMMARY | 2024-11-05 07:30 | XMS_ITS ---
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 Name Role Phone Berlin Ospina Primary Care Provider [phone] Allergies Allergen (clinical drug ingredient) Drug/Non Drug Allergy documented on EMR Reaction Allergy Type Onset Date Status Compazine Throat closes Drug Allergy Act chacha REASON FOR VISIT DISCUSS A WORK ISSUE Medications Medication SIG (Take, Route, Frequency, Duration) Notes Start Date End Date Status Alendronate Sodium 70 MG 1 tablet 30 min utes before the first food, beverage or medicine of the day with plain water Orally Active Problems Problem Type SNOMED Code ICD Code Onset Dates Problem Status W/U Status Risk Notes Problem 803669791 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 Vital Signs Height 60 in 11/05/2024 Weight 91 lbs 11/05/2024 BMI 17.77 kg/m2 11/05/2024 Patient refused BP Encounters Encounter Location Date Provider Diagnosis Berlin Ospina MD [address] [place] [phone] 11/05/2024 Berlin Ospina Agranulocytosis secondary to cancer chemotherapy D70.1 and Adverse effect of antineoplastic and immunosuppressive drugs, initial encounter T45.1X5A Assessments Encounter Date Diagnosis (ICD Code) Assessment Notes Treatment Notes Treatment Clinical Notes Section Notes 11/05/2024 Agranulocytosis secondary to cancer chemotherapy (ICD-10 - D70.1) 11/05/2024 Adverse effect of antineoplastic and immunosuppressive drugs, initial encounter (ICD-10 - T45.1X5A) here for paper work for work. . i have filled the paper work as she requested but am concerned that it may back fire on her and work opposite to what she is hoping Plan Of Treatment Treatment Notes Assessment Notes Adverse effect of antineopla stic and immunosuppressive drugs, initial encounter here for paper work for work. . i have filled the paper work as she requested but am concerned that it may back fire on her and work opposite to what she is hoping Next Appt Details Provider Name:Berlin Peterson ier, 08/02/2025 08:30:00 AM, [address] [place] [address], [address], [place], [place], [phone], Progress Notes * Kalyn CRUZ CDOB: 0 (64 yo F)Acc No.[id number]:11/05/2024 Progress Notes Patient: Kalyn Duarte Provider: Tushar Ospina MD :1960 A ge:64 Y S ex:Female Date:11/05/2024 Address:[address] [place] [address], [facility] Subjective: * Chief Complaints: * D ISCUSS A WORK ISSUE * HPI: S ymptom(s): patient is 64 yo female having issues at work and they are trying to get her to retire. senior risk manager says that she has to have a note saying that she has a compromised immune system from having low white count. * ROS: G eneral/Constitutional: Denies C hills. D enies F atigue. D enies F ever. D enies H eadache. E NT: Patient denies d ecreased sense of smell , any loss of taste , sore throat. D enies S ore throat. R espiratory: Denies C ough. D enies S hortness of breath at rest. D enies S hortness of breath with exertion. G astrointestinal: Denies D iarrhea. D enies N ausea. M usculoskeletal: Patient denies m uscle aches. P eripheral Vascular: Patient denies r ed and blue toes. * Medical History: * Surgical History: * Hospitalization/Major Diagno stic Procedure: * Medications: T akingAlendronate Sodium 70 MG [...] Objective: * Vitals: H t: 60, Wt:91, BMI:17.77 Patient refused BP. * Examination: G eneral Examination: GENERAL APPEARANCE: a lert, well hydrated, in no distress.? Assessment: * Assessment: 1. A granulocytosis secondary to cancer chemotherapy - D70.1 (Primary) 2 . A dverse effect of antineoplastic and immunosuppressive drugs, initial encounter - T45.1X5A Plan: * Treatment: * Procedure Codes: * * Sign off status: Completed true * Provider: Tushar Ospina MD Date: 01/06/2024 Generated for Dmitri manriquez/Maggy/Sharonitting on: 0 07/27/2025 02:50 PM EDT History and Physical Notes * HPI (History of Present Illness) Category Sub-Category Detail Notes Category Not es Symptom(s) patient is 64 y o female having issues at work and they are trying to get her to retire. 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
--- OUTSIDE RECORDS SUMMARY | 2025-07-27 05:00 | XMS_ITS ---
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 Name Role Phone Berlin Ospina Primary Care Provider Results Component Value Reference Range Notes Complete Blood Count Auto Di ff Reviewed date:07/27/2025 12:05:47 PM Interpretation: Performing Lab:[facility], [address] [place] [phone] Notes/Report: White Blood Count 3.9 4.8-10.8 X10*3/uL Red Blood Count 3.99 4.20-5.50 X10*6/uL Hemoglobin 12.2 12.0-16.0 g/dl Hematocrit 36.4 37.0-47.0 % Mean Corpuscular Volume 91.2 80.0-98.0 fL Mean Corpuscular Hemoglobin 30.6 27.0-33.0 pg Mean Corpuscular HGB Conc 33.5 31.0-35.0 g/dl Red Cell Distribution Width 12.3 11.0-16.0 % Platelet Count 164 160-400 X10*3/uL Mean Platelet Volume 10.0 9.4-12.3 fL Neutrophils Percent Auto 47.9 45-73 % Imm Gran Pct Auto 0.3 0.0-0.4 % Lymphocytes Percent Auto 34.5 20-40 % Monocytes Percent Auto 12.7 2-11 % Eosinophils Percent Auto 4.1 0-4 % Basophils Percent Auto 0.5 0-2 % NRBC Pct Auto 0.0 0.0-0.2 /100WBC Neutrophils Absolute Auto 1.9 2.0-8.3 x10*3/u L Imm Gran Abs Auto 0.01 0.00-0.03 X10*3/uL Lymphocytes Absolute Auto 1.4 1.2-4.9 X10*3/u L Monocytes Absolute Auto 0.5 0.1-1.2 X10*3/uL Eosinophils Absolute Auto 0.2 0.0-0.4 X10*3/u L Basophils Absolute Auto 0.0 0.0-0.2 X10*3/uL NRBC Abs Auto 0.000 0.0-0.012 X10*3/uL Comprehensive [place]. Panel Fa st Reviewed date:07/27/2025 12:23:05 PM Interpretation: Performing Lab:[address] [phone] Notes/Report: Sodium 141 135-145 mmol/L Potassium 4.0 3.3-5.1 mmol/L Chloride 105 96-108 mmol/L Carbon Dioxide 30 22-29 mmol/L Anion Gap 10 12-20 Blood Urea Nitrogen 18 9-16 mg/dL Creatinine 0.94 0.5-1.4 mg/dL Estimated Glomerular Filt Rate 60 Chronic Kidney Disease: Estimated GFR < 60 mL/min/1.73m2 Severe Kidney Disease: Estimated GFR < 15 mL/min/1.73m2 Glucose Fasting 81 60-99 mg/dL Calcium 9.3 8.4-10.2 mg/dL Bilirubin Total 0.7 0.0-1.0 mg/dL Aspartate Amino Transferase 29 5-31 U/L Alanine Aminotransferase 26 0-31 U/L Total Protein 6.4 6.5-8.0 g/dL Albumin Level 4.4 3.5-5.0 g/dL Alkaline Phosphatase 46 39-117 U/L Lipid Panel Reviewed date:07/27/2025 12:21:04 PM Interpretation: Performing Lab:[address] [phone] Notes/Report: Triglycerides 92 <150 mg/dL Desirable Triglyceride: less than 150 mg/dL Borderline High Triglyceride 150-199 mg/dL High Triglyceride: 200-499 mg/dL Very High Triglyceride: greater than or equal to 5OO mg/dL Cholesterol 207 <200 mg/dL Desirable Cholesterol: less than 200 mg/dL Borderline High Cholesterol: 200-239 mg/dL High Cholesterol: greater than 239 mg/dL LDL Cholesterol Calculated 114 <100 mg/dL Desirable LDL: less than 100 mg/dL Near Optimal/Above Optimal LDL: 110-129 mg/dL Borderline High LDL: 130-159 mg/dL High LDL: 160-189 mg/dL Very High LDL: greater than or equal to 190 mg/dL HDL Cholesterol 75 >40 mg/dL Desirable HDL: greater than 40 mg/dL Note: This HDL assay may give artificially low results in patients with liver disease. UA ClnCatch+Micro w/rflx Cul t Reviewed date:07/27/2025 12:08:12 PM Interpretation: Performing Lab:[facility], [address] [place] [phone] Notes/Report: Urine, Clean Catch Color Urine Yellow Appearance Urine Clear PH 5.5 5.0-9.0 Glucose Urine UA Negative Negative mg/dL Urine Blood Negative Negative Specific [place] - Urine 1.015 1.005-1.025 Urine Protein Trace Neg-Trace mg/dL Urine Ketones Negative Negative mg/dL Nitrite Urine Negative Negative Leukocyte Esterase Urine Negative Negative RBC Urine 0-2 0-2 /HPF WBC Urine 0-5 0-5 /HPF Squamous Epithelial Cell Urine 3-5 0-2 /HPF Bacteria Urine None Seen None Seen Hyaline Casts Urine 0-2 0-2 /LPF REASON FOR VISIT FASTING LABS Immunizations Vaccine Route Administration Date Status Comme nts Fluarix Quadrivalent - 150 IM Intramuscular 07/27/2025 Adm inistered Encounters Encounter Location Date Provider Diagnosis Berlin Ospina MD [address] [facility] [address] [place], [place] [phone] 07/27/2025 Berlin Ospina Blood tests for routine general physical examination Z00.00 ; Lymphocytosis D72.820 and Encounter for administration of vaccine Z23 Assessments Encounter Date Diagnosis (ICD Code) Assessment Notes Treatment Notes Treatment Clinical Notes Section Notes 07/27/2025 Blood tests for routine general physical examination (ICD-10 - Z00.00) 07/27/2025 Lymphocytosis (ICD-10 - D72.820) 07/27/2025 Encounter for administration of vaccine (ICD-10 - Z23) Plan Of Treatment Next Appt Details Provider Name:Berlin Peterson ier, 08/02/2025 08:30:00 AM, [address], [address], [place], [place], [phone], Progress Notes * Kalyn CRUZ CDOB: 0 (65 yo F)Acc No.[id number]:07/27/2025 Progress Note Patient: Kalyn ADRIAN Provider: Tushar Ospina MD :1960 A ge:65 Y S ex:Female Date:07/27/2025 Address:[address] [place] [address], [facility] Subjective: * Chief Complaints: * 1 . FASTING LABS. * Medical History: Objective: * Vitals: Assessment: * Assessment: 1. B lood tests for routine general physical examination - Z00.00 (Primary) 2 .?Lymphocytosis - D72.820 3 . E ncounter for administration of vaccine - Z23? Plan: * Treatment: 2. L ymphocytosis L AB: Complete Blood Count Auto Diff (Collection Date & Time - 07/27/2025 11:03 AM) L AB: Comprehensive [place]. Panel Fast (Collection Date & Time - 07/27/2025 11:03 AM) L AB: Lipid Panel (Collection Date & Time - 07/27/2025 11:03 AM) L AB: UA ClnCatch+Micro w/rflx Cult (Collection Date & Time - 07/27/2025 11:03 AM) * Immunizations: Fluarix Quadrivalent - 150 : 0.5 mL (Dose No:1) (Route: Intramuscular) given by Radha Michel , Office Staff on Left Deltoid * Procedure Codes: 3 6415 VENIPUNCT, ROUTINE*, 33495 FLU VACCINE NO PRESERV 3 & >, 50602 IMMUNIZATION ADMIN * * The named appointment provid er may or may not be the originator of this progress note, and it is not deemed complete until electronically signed by the appointment provider. Sign off status: Pending * Provider: Tushar Ospina MD Date: 0 07/27/2025 Generated for Dmitri manriquez/Maggy/Gio on: 0 07/27/2025 02:50 PM EDT
[2025-07-27 11:04] LABS: MANUAL DIFF FLAG NO
[2025-07-27 11:31] LABS: Appearance Urine Clear; Glucose Urine UA Negative (Negative); PH 5.5 (5.0-9.0); Specific Gravity - Urine 1.015 (1.005-1.025)
[2025-07-27 11:32] LABS: Hematocrit 36.4 % (37.0-47.0); Hemoglobin 12.2 g/dl (12.0-16.0); Imm Gran Abs Auto 0.01 X10*3/uL (0.00-0.03); Imm Gran Pct Auto 0.3 % (0.0-0.4); Lymphocytes Absolute Auto 1.4 X10*3/uL (1.2-4.9); Mean Corpuscular HGB Conc 33.5 g/dl (31.0-35.0); Mean Corpuscular Hemoglobin 30.6 pg (27.0-33.0); Mean Corpuscular Volume 91.2 fL (80.0-98.0); NRBC Abs Auto 0.000 X10*3/uL (0.0-0.012); NRBC Pct Auto 0.0 /100WBC (0.0-0.2); Platelet Count 164 X10*3/uL (160-400); Red Blood Count 3.99 X10*6/uL (4.20-5.50); White Blood Count 3.9 X10*3/uL (4.8-10.8)
[2025-07-27 12:08] LABS: Alanine Aminotransferase 26 U/L (0-31); Albumin Level 4.4 g/dL (3.5-5.0); Alkaline Phosphatase 46 U/L (39-117); Anion Gap 10 (12-20); Aspartate Amino Transferase 29 U/L (5-31); Blood Urea Nitrogen 18 mg/dL (9-16); Calcium 9.3 mg/dL (8.4-10.2); Carbon Dioxide 30 mmol/L (22-29); Chloride 105 mmol/L (96-108); Cholesterol 207 mg/dL (<200); Estimated Glomerular Filt Rate 60; HDL Cholesterol 75 mg/dL (>40); Potassium 4.0 mmol/L (3.3-5.1); Sodium 141 mmol/L (135-145); Total Protein 6.4 g/dL (6.5-8.0); Triglycerides 92 mg/dL (<150)
--- OUTSIDE RECORDS SUMMARY | 2025-07-27 14:50 | XMS_ITS | Patient Health Record ---
Author Organization Berlin Ospina MD Address [address] [place], [place] [phone] Care Team Providers Care Nutritional Services Host Name Role Phone Berlin Ospina Primary Care Provider Allergies Allergen (clinical drug ingredient) Drug/Non Drug Allergy documented on EMR Reaction Allergy Type Onset Date Status Compazine Throat closes Drug Allergy Act chacha Results Component Value Reference Range Notes Complete Blood Count Auto Di ff Reviewed date:07/27/2025 12:05:47 PM Interpretation: Performing Lab:[facility], [address] [place] [phone] Notes/Report: White Blood Count 3.9 4.8-10.8 X10*3/uL [...] NRBC Abs Auto 0.000 0.0-0.012 X10*3/uL Comprehensive [place]. Panel Fa st Reviewed date:07/27/2025 12:23:05 PM Interpretation: Performing Lab:[facility], [address] [place] [phone] Notes/Report: Sodium 141 135-145 mmol/L Potassium 4.0 [...] Panel Reviewed date:07/27/2025 12:21:04 PM Interpretation: Performing Lab:[facility], [address] [place] [phone] Notes/Report: Triglycerides 92 <150 mg/dL Desirable Triglyceride: [...] t Reviewed date:07/27/2025 12:08:12 PM Interpretation: Performing Lab:[facility], [address] [place] [phone] Notes/Report: Urine, Clean Catch Color Urine Yellow Appearance Urine Clear PH 5.5 5.0-9.0 Glucose Urine UA Negative Negative mg/dL Urine Blood Negative Negative Specific [place] - Urine 1.015 1.005-1.025 Urine Protein Trace Neg-Trace mg/dL Urine Ketones Negative Negative mg/dL Nitrite Urine Negative Negative Leukocyte Esterase Urine Negative Negative RBC Urine 0-2 0-2 /HPF WBC Urine 0-5 0-5 /HPF Squamous Epithelial Cell Urine 3-5 0-2 /HPF Bacteria Urine None Seen None Seen Hyaline Casts Urine 0-2 0-2 /LPF Reason For Referral No Information Medications Medication SIG (Take, Route, Frequency, Duration) Notes Start Date End Date Status Alendronate Sodium 70 MG 1 tablet 30 min utes before the first food, beverage or medicine of the day with plain water Orally Active Immunizations Vaccine Route Administration Date Status Comme nts Flu Vaccine IM Intramuscular 08/16/2011 Administered Flu Vaccine Unknown 08/29/2012 Administered Given at [facility] Flu Vaccine IM Intramuscular 09/11/2013 Administered [facility] Flu Vaccine Unknown 09/04/2014 Administered [facility] Fluarix Quadrivalent IM Intramuscular 08/07/2016 Administered Fluarix Quadrivalent IM Intramuscular 08/06/2017 Administered Fluarix Quadrivalent IM Intramuscular 08/25/2018 Administered Fluarix Quadrivalent IM Intramuscular 09/08/2019 Administered Fluarix Quadrivalent Unknown 08/20/2020 Administered [facility] SARS-COV-2 Pfizer Unknown 05/30/2021 Administered SARS-COV-2 Pfizer Unknown 06/20/2021 Administered Fluarix Quadrivalent Unknown 09/09/2021 Administered Fluarix Quadrivalent - 150 IM Intramuscular 07/23/2024 Administered Fluarix Quadrivalent - 150 IM Intramuscular 07/27/2025 Administered Social History Tobacco Use: Social History Observation [...] ast year? 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) Active confirmed Problem 53998745 Osteoporosis without current pathological fracture, unspecified osteoporosis type (M81.0) Active confirmed Vital Signs Blood pressure diastolic 66 mm Hg 07/30/2024 Height 60 in 11/05/2024 Patient refused BP Blood pressure systolic 102 mm Hg 07/30/2024 Weight 91 lbs 11/05/2024 Patient refused BP BMI 17.77 kg/m2 11/05/2024 Patient refused BP Encounters Encounter Location Date Provider Diagnosis Berlin Ospina MD [address] [place] [phone] 07/27/2025 Berlin Ospina Blood tests for rout ine general physical examination Z00.00 ; Lymphocytosis D72.820 and Encounter for administration of vaccine Z23 Berlin Ospina MD [address] [place] [phone] 07/30/2024 Berlin Ospina Annual physical exam Z00.00 ; Hematuria, unspecified type R31.9 and Lymphocytosis D72.820 Beriln Ospina MD [address] [place], [place] [phone] 11/05/2024 Berlin Ospina Agranulocytosis secondary to cancer chemotherapy D70.1 and Adverse effect of antineoplastic and immunosuppressive drugs, initial encounter T45.1X5A Assessments Encounter Date Diagnosis (ICD Code) Assessment Notes Treatment Notes Treatment Clinical Notes Section Notes 07/27/2025 Blood tests for routine general physical examination (ICD-10 - Z00.00) 07/27/2025 Lymphocytosis (ICD-1 0 - D72.820) 07/30/2024 Annual physical exam (ICD-10 - Z00.00) excellent, labs reviewed and discussed with patient 07/30/2024 Hematuria, unspecified type (ICD-10 - R31.9) doing well, will continue to monitor 11/05/2024 Agranulocytosis secondary to cancer chemotherapy (ICD-10 - D70.1) 11/05/2024 Adverse effect of antineoplastic and immunosuppressive drugs, initial encounter (ICD-10 - T45.1X5A) here for paper work for work. . i have filled the paper work as she requested but am concerned that it may back fire on her and work opposite to what she is hoping 07/27/2025 Encounter for administration of vaccine (ICD-10 - Z23) 07/30/2024 Lymphocytosis (ICD-1 0 - D72.820) has resolved, will contiue to monitor Plan Of Treatment Pending Test Test Name Order Date Electrocardiogram (EKG) 08/10/2016 Next Appt Details Provider Name:Berlin Peterson ier, 08/02/2025 08:30:00 AM, [address], [address], [place], [place], [phone], Insurance Providers Payer Name Payer Address Payer Phone Subscriber Number Group Number Insured Name Patient Relationship to Insured Coverage Start Date Coverage End Date [facility] P O JLIL [id number] [place] [id number] Kalyn Cruz Self - patient is the insured Medical (General) History Medical History History ICD Code refused colonoscopy 2013. merissa scussed in detail; fecal occult blood 04/07/16 fit depression screening 2013 had colonoscopy 09/28/[address] Forte repeat in 10 years
--- OUTSIDE RECORDS SUMMARY | 2025-07-27 14:50 | XMS_ITS | Clinical Summary ---
Author Organization [facility] Address [address] [place] [address] Phone Care Team Providers Care Director Of Materials Name Role Phone Berlin Ospina MD Primary Care Provider Encounters Date Type Department Care Team Description 05/10/2025 Lab Requisition [facility] - Main Lab [address] [place] [address] Chi Stevenson MD Encounter for gynecological examination (general) (routine) without abnormal findings from Last 3 Months Surgical History Surgery Date Site/Laterality Comments OTHER SURGICAL HISTORY 1998 Right PROCEDURE: HISTORY OTHER; COMMENT: mastectomy Social History Tobacco Use Types Packs/Day Years Used Date Smoking Tobacco: Never Alcohol Use Standard Drinks/Week Comments Never 0 (1 standard drink = 0.6 oz pur e alcohol) Comments Unknown Sex and Gender Information Value Date Recorded Sex Assigned at Not on file Legal Sex Female 7:46 AM EST Gender Identity Not on file Sexual Orientation Not on file Obstetrics History Last Filed Vital Signs Vital Sign Reading Time Taken Comments Blood Pressure 142/82 07/21/2024 8:57 AM EDT Pulse 92 07/21/2024 8:57 AM EDT Temperature - - Respiratory Rate - - Oxygen Saturation - - Inhaled Oxygen Concentration - - Weight 41.4 kg (91 lb 3.2 oz) 07/21/2024 8:57 AM EDT Height 149.9 cm (4' 11 ) 07/21/2024 8:57 AM EDT Body Mass Index 18.42 07/21/2024 8:57 AM EDT Plan of Treatment Upcoming Encounters Date Type Department Care Team (Late st Contact Info) Description 09/09/2025 9:00 AM EDT [facility]ment [facility] [address] [place] [address] 09/14/2025 11:15 AM EST Office Visit General Surgery - [place] [address] [facility] [address] [place] [address] Cathy Boyd MD [facility] [place] [address] Health Maintenance Due Date Last Done Comments Breast Cancer Screening 1960 DTaP,Tdap,and Td Vaccines (1 - Tdap) 1979 Pneumococcal Vaccine: 50+ Years (1 of 1 - PCV) 2010 Zoster Vaccines (1 of 2) 2010 Colorectal Cancer Screening: Colonoscopy 10/14/2022 Hepatitis C Screening 10/14/2022 Social Influencers of Health Screening 10/14/2022 Depression Screening 11/11/2024 Falls Risk Assessment 2025 COVID-19 Vaccine (1 - 2023-2 5 season) 2025 Influenza Vaccine (#1) 2025 Cervical Cancer Screening: P ap Smear 05/10/2028 05/10/2025 Osteoporosis Screening (Bone Density Screening) 09/10/2032 09/10/2022, 09/02/2020 RSV Immunization Adult Patients (1 - 1-dose 75+ series) 2035 HIB Vaccines Aged Out No longer eligi ble based on patient's age to complete this topic HPV Vaccines Aged Out No longer eligi ble based on patient's age to complete this topic Hepatitis A Vaccines Aged Out No long er eligible based on patient's age to complete this topic Hepatitis B Vaccines Aged Out No long er eligible based on patient's age to complete this topic IPV Vaccines Aged Out No longer eligi ble based on patient's age to complete this topic MMR Vaccines Aged Out No longer eligi ble based on patient's age to complete this topic Meningococcal ACWY Vaccine Aged Out N o longer eligible based on patient's age to complete this topic Meningococcal B Vaccine Aged Out No l onger eligible based on patient's age to complete this topic RSV Immunization Patients Under 20 months Aged Out No longer eligible b ased on patient's age to complete this topic Varicella Vaccines Aged Out No longer eligible based on patient's age to complete this topic Procedures Procedure Name Priority Date/Time Associated Diagnosis Comments PAP SMEAR Routine 05/10/2025 12:00 AM EDT Encounter for gynecological examination (general) (routine) without abnormal findings PHILLIP DEXA AXIAL SKELETON Routine 09/10/2022 10:12 AM EDT Encounter for screening for osteoporosis from Last 3 Months or Most Recently Relevant to Health Maintenance Results * Pap smear (05/10/2025 12:00 AM EDT) Interpretation Negative for intraepithelial lesion or malignancy 05/18/2025 9:08 AM [facility] General Categorization Negative 05/18/2025 9:08 AM [facility] Specimen Adequacy Satisfactory for evaluation, endocervical/rg sformation zone component absent 05/18/2025 9:08 AM [facility] Pap Methodology Liquid Based Pap Test 05/18/2025 9:08 AM [facility] Disclaimer The Pap test is a screening test which carries an inherent false negative rate. These test results should be correlated with the patient's clinical findings and history. This Pap test was processed using an automated screening system. Technical cytopathology services provided by [facility], at [address] [place] [address] (CLIA # [id number]/Buzz Brown MD, Granite Cutter Apprentice.) 05/18/2025 9:08 AM [facility] Console Pap Interpretation Reported 05/18/2025 9:08 AM [facility] Brushing/Spatula Cervix uteri structure / Unknown 05/10/2025 05/10/2025 1:53 PM EDT Chi Stevenson MD LAB CYTOLOGY ORDERABLES Final Result [facility] [address] [place] [address], * PHILLIP DEXA AXIAL SKELETON (09/10/2022 10:12 AM EDT) Anatomical Region Laterality Modality Mammography 09/10/2022 9:10 AM EDT Narrative 09/10/2022 10:12 AM EDT [facility] Diagnostic Imaging Department [address] [place] [address] Patient: ELMAMANDA /Age/Sex: 1960 - 62 - F Unit#: [id number] Location/Status: SPDIMAM/REG CLI Mnemonic[facility] Ordering Physician: SUSAN GILLIS MD [facility] Dexa Axial Skeleton - 09/10/22954 HISTORY: The patient is a 62-year-old postmenopausal female with clinical concern for metabolic bone disease. FINDINGS: Dual energy x-ray absorptiometry of the lumbar spine and femurs is performed. The mean bone mineral density at L1-L4 is 0.944 gm/cm2 which is 80% of that of young normals and 103% of that of age matched controls. This yields a T-score of -2.0 and a Z-score of 0.2 which is diagnostic of osteopenia. The mean bone mineral density of the femurs bilaterally is 0.610 gm/cm2 which is 61% of that of young normals and 76% of that of age matched controls. This yields a T-score of -3.2 and a Z-score of -1.5 which is diagnostic of osteoporosis. IMPRESSION: 1. Osteoporosis. There has been an increase of 10.9% in bone mineral density in the lumbar spine since the prior examination of 09/02/2020. There has been an increase of 0.5% in bone mineral density in the right femur and a decrease of 1.8% in bone mineral density in the left femur. 2. FRAX analysis yields a 10-year probability of major osteoporotic fracture of 13.4% and a 10-year probability of hip fracture of 4.1%. Code 01850 Dictating Physician: BOLA TOBAR MD Electronically Signed by: BOLA TOBAR MD Dic Date/Time: 09/10/22 1011 Sign date/Time: 09/10/22 1012 Procedure Note Bola Tobar MD - 10/31/2022 [facility] Diagnostic Imaging Department [address] [place] [address] Patient: MANDA CRUZ Sonia /Age/Sex: 1960 - 62 - F Unit#: [id number] Location/Status: [facility] CLI Mnemonic/[facility] Ordering Physician: SUSAN GILLIS MD [facility] Dexa Axial Skeleton - 09/10/22954 HISTORY: The patient is a 62-year-old postmenopausal female withclinical concern for metabolic bone disease. FINDINGS: Dual energy x-ray absorptiometry of the lumbar spine and femursis performed. The mean bone mineral density at L1-L4 is 0.944 gm/cm2 which is80% of that of young normals and 103% of that of age matched controls. Thisyields a T-score of -2.0 and a Z-score of 0.2 which is diagnostic of osteopenia. The mean bone mineral density of the femurs bilaterally is 0.610 gm/ag4lapcs is 61% of that of young normals and 76% of that of age matched controls.This yields a T-score of -3.2 and a Z-score of -1.5 which is diagnostic of osteoporosis. IMPRESSION: 1. Osteoporosis. There has been an increase of 10.9% in bone mineraldensity in the lumbar spine since the prior examination of 09/02/2020. There hasbeen an increase of 0.5% in bone mineral density in the right femur and adecrease of 1.8% in bone mineral density in the left femur. 2. FRAX analysis yields a 10-year probability of major osteoporoticfracture of 13.4% and a 10-year probability of hip fracture of 4.1%. Code 62076 Dictating Physician: BOLA TOBAR MD Electronically Signed by: BOLA TOBAR MD Dic Date/Time: 09/10/22 1011 Sign date/Time: 09/10/22 1012 Susan Gillis MD IMG BI PROCEDURES Final Result from Last 3 Months or Most Recently Relevant to Health Maintenance Insurance [facility] Care Teams Director Of Materials Relationship Specialty Start Date End Date Berlin Ospina MD [address] [place] [address] PCP - General Internal Medicine 05/10/25
--- OUTSIDE RECORDS SUMMARY | 2025-07-27 14:50 | XMS_ITS | Encounter Summary ---
Author Organization [facility] Address [address] [place] [address] Care Team Providers Care Customer Supply Chain Analyst Name Role Phone Berlin Ospina MD Primary Care Provider Encounter Details Date Type Department Care Team (Latest Contact Info) Description 05/10/[address] [facility] - Main Lab [address] [facility] [place] [phone] Chi Stevenson MD [address] [facility] [address] [place] [phone] Encounter for gynecological examination (general) (routine) without abnormal findings Social History Tobacco Use Types Packs/Day Years Used Date Smoking Tobacco: Never Alcohol Use Standard Drinks/Week Comments Never 0 (1 standard drink = 0.6 oz pur e alcohol) Comments Unknown Sex and Gender Information Value Date Recorded Sex Assigned at Not on file Legal Sex Female 7:46 AM EST Gender Identity Not on file Sexual Orientation Not on file documented as of this encounter Plan of Treatment Upcoming Encounters Date Type Department Care Team (Late st Contact Info) Description 09/09/2025 9:00 AM EDT Appointment [facility] [address] [place] [address] 09/14/2025 11:15 AM EST Office Visit General Surgery - [place] [address] [facility] [address] [place] [address] Cathy Boyd MD [address] [place] [address] documented as of this encounter Procedures Procedure Name Priority Date/Time Associated Diagnosis Comments PAP SMEAR Routine 05/10/2025 12:00 AM EDT Encounter for gynecological examination (general) (routine) without abnormal findings documented in this encounter Results * Pap smear (05/10/2025 12:00 AM EDT) Interpretation Negative for intraepithelial lesion or malignancy 05/18/2025 9:08 AM EDT [facility] General Categorization Negative 05/18/2025 9:08 AM EDT [facility] Specimen Adequacy Satisfactory for evaluation, endocervical/rg sformation zone component absent 05/18/2025 9:08 AM [facility] Pap Methodology Liquid Based Pap Test 05/18/2025 9:08 AM EDT [facility] Disclaimer The Pap test is a screening test which carries an inherent false negative rate. These test results should be correlated with the patient's clinical findings and history. This Pap test was processed using an automated screening system. Technical cytopathology services provided by [facility], at [address] [place] [id number] (CLIA # [id number]/Buzz Brown MD, Line Ordering Clinician.) 05/18/2025 9:08 AM EDT [facility] Console Pap Interpretation Reported 05/18/2025 9:08 AM [facility] Brushing/Spatula Cervix uteri structure / Unknown 05/10/2025 05/10/2025 1:53 PM EDT us Chi Stevenson MD LAB CYTOLOGY ORDERABLES Final Result [facility] [address] [place] [address], documented in this encounter Visit Diagnoses Diagnosis Encounter for gynecological examination (general) (routine) without abnormal findings documented in this encounter Care Teams Customer Supply Chain Analyst Relationship Specialty Start Date End Date Berlin Ospina MD [address] [place] [address] [place] [id number] PCP - General Internal Medicine 05/10/25 documented as of this encounter
== END 2025-07-27 10:58 | disposition home or self-care (01) ==
LOC: HO.LNP 10:57
PROVIDERS: Visit Provider Internal Medicine
DX: Z00.00 Encounter for general adult medical examination without abnormal findings (principal); Z13.6 Encounter for screening for cardiovascular disorders; D72.820 Lymphocytosis (symptomatic)
CPT/HCPCS: 80053; 80061; 81001; 85025